=== PATIENT | female | born 1970 | race Caucasian/White ===

== ENCOUNTER 2018-06-17 16:42 | Emergency (ER) | payer SELFPAY ==
[2018-06-17] MEDS ORDERED: Dexamethasone 4 mg/ml Vial ONE (17:14)
[2018-06-17] MEDS ORDERED: Bupivacaine PF 0.5% 30 ML VIAL ONE (17:14)
[2018-06-17] MEDS ORDERED: SUMAtriptan Succinate 6 MG/0.5 ML VIAL ONE (18:09)
[2018-06-17] MEDS ORDERED: Sodium Chloride 0.9% 1,000 ML ONE (18:09)
[2018-06-17] MEDS ORDERED: Ketorolac Tromethamine 30 MG/ML VIAL ONE (18:09)
[2018-06-17] MEDS ORDERED: Morphine 4 MG/ML VIAL ONE (20:00)
[2018-06-17] MEDS ORDERED: Dexamethasone 10 MG/ML VIAL ONE (20:01)
[2018-06-17] MEDS ORDERED: Prochlorperazine 10 MG/2 ML VIAL ONE (20:01)
== END 2018-06-17 20:32 | disposition home or self-care (01) ==
LOC: MADERS 16:42
DX: R51 Headache (principal); K58.9 Irritable bowel syndrome, unspecified; F17.210 Nicotine dependence, cigarettes, uncomplicated; Z79.899 Other long term (current) drug therapy
CPT/HCPCS: 96361; 96365; 96372; 96375; J0780; J1100; J1885; J2270; J3030; J7050; S0020